=== PATIENT | female | born 1960 | race Caucasian/White ===

== ENCOUNTER → 2019-05-08 | Outpatient (CLI) | payer OTHER | LOC: DL.MRI 07:40 | PROVIDERS: ATTEND Family Medicine | DX: M25.561 Pain in right knee (principal); M25.861 Other specified joint disorders, right knee; M25.461 Effusion, right knee; M17.11 Unilateral primary osteoarthritis, right knee; M22.41 Chondromalacia patellae, right knee; M93.261 Osteochondritis dissecans, right knee | CPT/HCPCS: 73721-RT ==

== ENCOUNTER 2020-07-08 10:37 | Emergency (ER) | payer OTHER ==
--- NOTE | 2020-07-08 10:45 | EDM.PDOC ---
ED HPI GENERAL MEDICAL PROBLEM - General Chief Complaint: Gastrointestinal Problem Stated Complaint: MICHELLE THINKS SHE HAS A GI BLEED Time Seen by Provider: 07/08/20 10:45 Source of Information: Reports: Patient, Old Records, RN, RN Notes Reviewed History Limitations: Reports: No Limitations - History of Present Illness INITIAL COMMENTS - FREE TEXT/NARRATIVE: Pt sent from [facility] with concern for GI bleed. Pt states yesterday she had stomach cramps. Pt states during night she passed bright red blood in stools. Pt states she had 3 BMs through night. No BM's this morning. Denies abdominal pain today. Denies lightheadedness, syncope, or any black or tarry stools. Denies N/V. Pt states she has never had rectal bleeding in the past. Duration: Day(s): (1) Location: Reports: Abdomen Severity: Moderate Improves with: Reports: None Worsens with: Reports: None Associated Symptoms: Reports: No Other Symptoms - Related Data Allergies Allergy/AdvReac Type Severity Reaction Status Date / Time ampicillin Allergy Rash Verified 07/08/20 10:54 Home Meds: Home Meds Ibuprofen [Advil] 600 mg PO DAILY 07/08/20 [History] lisinopriL [Lisinopril] 10 mg PO DAILY 07/08/20 [History] Past Medical History Cardiovascular History: Reports: Hypertension Social & Family History - Family History Family Medical History: Noncontributory - Tobacco Use Smoking Status *Q: Never Smoker - Recreational Drug Use Recreational Drug Use: No Drug Use in Last 12 Months: No - Living Situation & Occupation Living situation: Reports: with Family ED ROS GENERAL - Review of Systems Review Of Systems: Comprehensive ROS is negative, except as noted in HPI. ED EXAM, GI/ABD - Physical Exam Exam: See Below Exam Limited By: No Limitations General Appearance: Alert, WD/WN, No Apparent Distress, Anxious Eyes: Bilateral: Normal Appearance (No scleral icterus) Nose: Normal Inspection, Normal Mucosa, No Blood Throat/Mouth: Normal Inspection, Normal Lips, Normal Teeth, Normal Gums, Normal Oropharynx, Normal Voice, No Airway Compromise Head: Atraumatic, Normocephalic Respiratory/Chest: No Respiratory Distress, Lungs Clear, Normal Breath Sounds, No Accessory Muscle Use, Chest Non-Tender Cardiovascular: Regular Rate, Rhythm GI/Abdominal Exam: Normal Bowel Sounds, Soft, Non-Tender, No Organomegaly, No Distention, No Abnormal Bruit, No Mass, Pelvis Stable Rectal (Female) Exam: Heme + Stool Back Exam: Normal Inspection Extremities: Normal Inspection, Normal Range of Motion, Non-Tender, Normal C apillary Refill, No Pedal Edema Neurological: Alert, Oriented, CN II-XII Intact, Normal Cognition, Normal Gait, No Motor/Sensory Deficits Psychiatric: Normal Affect, Normal Mood Skin Exam: Warm, Dry, Intact, Normal Color, No Rash. No: Ecchymosis, Jaundice, Petechiae Course - Vital Signs Last Recorded V/S: Last Vital Signs Temp 98.4 F 07/08/20 10:44 Pulse 83 07/08/20 10:44 Resp 18 07/08/20 10:44 BP 143/79 H 07/08/20 10:44 Pulse Ox 99 07/08/20 10:44 - Orders/Labs/Meds Orders: Active Orders 24 hr Category Date Time Status Peripheral IV Care [RC] . DIRECTED Care 07/08/20 10:58 Active NPO [Nothing Per Oral Diet] [DIET] Diet 07/08/20 Lunch Active UA RFX DIDI AND CULT IF INDIC [URIN] Stat Lab 07/08/20 10:58 Ordered Sodium Chloride 0.9% [Saline Flush] Med 07/08/20 10:57 Active 10 ml FLUSH ASDIRECTED PRN bisacodyL [Dulcolax] Med 07/08/20 11:55 Once 10 mg PO ONETIME ONE Peripheral IV Insertion Adult [OM.PC] Stat Oth 07/08/20 10:57 Ordered Medication Orders Sodium Chloride (Saline Flush) 10 ml FLUSH ASDIRECTED PRN PRN Reason: Keep Vein Open Last Admin: 07/08/20 11:06 Dose: 10 ml Documented by: JEFF Labs: Laboratory Tests 07/08/20 07/08/20 07/08/20 Range/Units 11:03 11:03 11:03 WBC 10.2 H (5.0-10.0) 10^3/uL RBC 3.99 L (4.2-5.4) 10^6/uL Hgb 13.7 (12.0-16.0) g/dL Hct 40.8 (37.0-47.0) % MCV 102.3 H (80-100) fL MCH 34.3 H (27.0-34.0) pg MCHC 33.6 (33.0-35.0) g/dL Plt Count 309 (150-450) 10^3/uL Neut % (Auto) 74.2 (42.2-75.2) % Lymph % (Auto) 15.9 L (20.5-50.1) % Meade % (Auto) 8.1 H (2-8) % Eos % (Auto) 1.5 (1.0-3.0) % Baso % (Auto) 0.3 (0.0-1.0) % PT 10.0 (9.0-12.0) SEC INR 1.1 (0.9-1.2) APTT 24.7 (22.0-34.0) SEC Sodium 139 (136-145) mmol/L Potassium 3.9 (3.5-5.1) mmol/L Chloride 103 (98-107) mmol/L Carbon Dioxide 28 (21-32) mmol/L Anion Gap 11.9 (7-13) mEq/L BUN 26 H (7-18) mg/dL Creatinine 1.01 (0.55-1.02) mg/dL Est Cr Clr Drug Dosing 59.04 mL/min Estimated GFR (MDRD) 56 BUN/Creatinine Ratio 25.7 (No establ ref range) Glucose 103 H (74-99) mg/dL Calcium 8.9 (8.5-10.1) mg/dL Total Bilirubin 0.4 (0.2-1.0) mg/dL AST 21 (15-37) U/L ALT 30 (14-59) U/L Alkaline Phosphatase 104 (46-116) U/L Troponin I < 0.017 (0.000-0.056) ng/mL Total Protein 7.9 (6.4-8.2) g/dL Albumin 4.1 (3.4-5.0) g/dL Globulin 3.8 Albumin/Globulin Ratio 1.1 Amylase 43 (25-115) U/L Lipase 169 (73-393) U/L Meds: Medications Generic Name Dose Route Start Last Admin Trade Name Freq PRN Reason Stop Dose Admin Sodium Chloride 10 ml 07/08/20 10:57 07/08/20 11:06 Saline Flush FLUSH 10 ml ASDIRECTED PRN Administration Keep Vein Open - Re-Assessments/Exams Free Text/Narrative Re-Assessment/Exam: 07/08/20 11:45 Dr. Morrow consulted, sees pt in ER. Plan to d/c pt to home to complete a bowel prep and remain NPO, and return tomorrow of colonoscopy. Departure - Departure Time of Disposition: 11:56 Disposition: Home, Self-Care 01 Condition: Good, Undetermined Clinical Impression: Rectal bleeding - Discharge Information *PRESCRIPTION DRUG MONITORING PROGRAM REVIEWED*: Not Applicable *COPY OF PRESCRIPTION DRUG MONITORING REPORT IN PATIENT LILIBETH: Not Applicable Instructions: Rectal Bleeding Forms: ED Department Discharge Additional Instructions: Bowel prep: clear liquid diet today, nothing by mouth after midnight. Drink 240mls of GoLYTLY every 15 to 30 minutes until entire contents of bottle have been consumed. Follow up tomorrow at [facility] for colonoscopy with Dr. Morrow. Sepsis Event Note (ED) - Focused Exam Vital Signs: Vital Signs Temp Pulse Resp BP Pulse Ox 07/08/20 10:44 98.4 F 83 18 143/79 H 99 - My Orders Last 24 Hours: My Active Orders 07/08/20 10:57 Sodium Chloride 0.9% [Saline Flush] 10 ml FLUSH ASDIRECTED PRN Peripheral IV Insertion Adult [OM.PC] Stat 07/08/20 10:58 Peripheral IV Care [RC] . DIRECTED UA RFX DIDI AND CULT IF INDIC [URIN] Stat 07/08/20 11:55 bisacodyL [Dulcolax] 10 mg PO ONETIME ONE 07/08/20 Lunch NPO [Nothing Per Oral Diet] [DIET] - Assessment/Plan Last 24 Hours: My Active Orders 07/08/20 10:57 Sodium Chloride 0.9% [Saline Flush] 10 ml FLUSH ASDIRECTED PRN Peripheral IV Insertion Adult [OM.PC] Stat 07/08/20 10:58 Peripheral IV Care [RC] . DIRECTED UA RFX DIDI AND CULT IF INDIC [URIN] Stat 07/08/20 11:55 bisacodyL [Dulcolax] 10 mg PO ONETIME ONE 07/08/20 Lunch NPO [Nothing Per Oral Diet] [DIET]
[2020-07-08] MEDS ORDERED: Sodium Chloride 0.9% 10 ML Syringe FLUSH PRN (10:57)
[2020-07-08 11:36] LABS: ANION GAP 11.9 mEq/L (7-13); CHLORIDE,CL 103 mmol/L (98-107); SODIUM,NA 139 mmol/L (136-145)
[2020-07-08 11:48] LABS: PTT,PARTIAL THROMBOPLSTIN TIME 24.7 SEC (22.0-34.0)
[2020-07-08] MEDS ORDERED: Bisacodyl 5 MG Tab PO ONE (11:55)
--- NOTE | 2020-07-09 08:38 | CONS ---
SERVICE DATE: 07/08/2020 INTRODUCTION: A 59-year-old female, presented to the emergency room with crampy abdominal pain and bright red rectal bleeding that started yesterday. She says it is a significant amount occasionally and it is bright red in origin. She has not had a prior workup. She does have a family history of colon cancer with a father in his late 50s who had a colon resection for cancer. Currently, the patient does not have any abdominal pain. ALLERGIES: The patient has allergies to ampicillin. CURRENT MEDICATIONS: Lisinopril. PRIOR SURGERIES: Include laparoscopic cholecystectomy and appendectomy, knee surgery x3 or 4. FAMILY HISTORY AND SOCIAL HISTORY: The patient lives here in [facility]. She works at the [employer]. She does not smoke. REVIEW OF SYSTEMS: Positive for history of SVT, currently asymptomatic, and takes no medications for it other than lisinopril. The patient is negative for asthma or respiratory compromise. PHYSICAL EXAMINATION: HEENT: Normal. Chest: Lungs are clear bilaterally. Heart: Normal sinus rhythm. Abdomen: Mildly obese, nontender. No evidence of hernias. Extremities: Have no edema. They have good range of motion. Neurologic: Grossly intact. ASSESSMENT: Rectal bleeding. PLAN: This patient has not had a prior colonoscopy. I think it would be reasonable to do this as an outpatient. I gave her preoperative instructions and a bowel prep. We will proceed with this tomorrow at [facility]. CC: KYLER Galeana [facility] /[id number]
== END 2020-07-08 12:10 | disposition home or self-care (01) ==
LOC: DL.ED 10:37
DX: K62.5 Hemorrhage of anus and rectum (principal); I10 Essential (primary) hypertension; Z88.1 Allergy status to other antibiotic agents; Z79.899 Other long term (current) drug therapy
CPT/HCPCS: 36415; 80053; 82150; 82272; 83690; 84484; 85025; 85610; 85730; 99283; A9270-GY

== ENCOUNTER 2020-07-09 06:57 | Day surgery (SDC) | payer OTHER ==
[2020-07-09] MEDS ORDERED: fentaNYL 100 MCG/2 ML SDV IV ONE ×3 (06:58→08:26)
[2020-07-09] MEDS ORDERED: Midazolam 1 MG/ML 2 ML SDV IV ONE ×10 (06:58→08:34)
[2020-07-09] MEDS ORDERED: Dextrose 5%-0.45% NaCl 1,000 ML IV SCH (07:35)
[2020-07-09] MEDS ORDERED: fentaNYL 100 MCG/2 ML SDV ONE (07:38)
[2020-07-09] MEDS ORDERED: Midazolam 1 MG/ML 2 ML SDV ONE (07:38)
--- NOTE | 2020-07-09 09:51 | OR ---
DATE: 07/09/2020 PREOPERATIVE DIAGNOSIS: Rectal bleeding. POSTOPERATIVE DIAGNOSIS: Rectal bleeding. PROCEDURE: Total colonoscopy with biopsy of distal transverse colon. ANESTHESIA: Conscious sedation with IV Versed and fentanyl. SPECIMEN: Biopsy. FINDINGS: About a 10 cm area of colitis appearing mucosa at the distal transverse colon, splenic flexure area, most likely ischemic colitis as this is a watershed area. However, biopsy may confirm it is ulcerative colitis. She also has a very few scattered sigmoid diverticula. INDICATION FOR PROCEDURE: This 59-year-old female presented to the emergency room day before yesterday with rectal bleeding. She was seen in the emergency room and set up for a colonoscopy. PROCEDURE IN DETAIL: After adequate preparation, a colonoscope was inserted into the rectum. This was easily passed all the way to the cecum. Confirmation of the cecum was made by visualization of the ileocecal valve, palpation in the right lower quadrant, and appendiceal opening. The bowel prep was excellent. On withdrawal of the scope, the only abnormality noted was about a 10 or 15 cm long area of erythematous and edematous colon. This was most characteristic of nonspecific colitis. This is not tumor in origin, at least visually does not look like it. I did do multiple biopsies of the area and photographs. The only other abnormality noted were a few sigmoid diverticula, which should be of no consequence. Anal and rectal examinations were normal. She does not have any evidence of hemorrhoids. Air was suctioned from the colon and the scope removed. CC: KYLER Galeana [facility] /[id number]
== END 2020-07-09 10:11 | disposition home or self-care (01) ==
LOC: DL.ENDO 06:57
PROVIDERS: ATTEND Surgery
DX: K52.9 Noninfective gastroenteritis and colitis, unspecified (principal); K57.30 Diverticulosis of large intestine without perforation or abscess without bleeding; Z88.1 Allergy status to other antibiotic agents; Z11.59 Encounter for screening for other viral diseases; Z80.0 Family history of malignant neoplasm of digestive organs
CPT/HCPCS: 45380; 87635; J2250; J3010; J7042; U0002